=== PATIENT | male | born 1990 | race Caucasian/White ===

== ENCOUNTER 2017-03-16 04:57 | Inpatient (IN) | payer BC ==
[2017-03-16] VITALS (8 sets, daily range): BP systolic 79–141; BP diastolic 56–97
[~2017-03-16] VITALS: Ht 188 cm; Wt 93.5 kg
[~2017-03-16 04:57] MED LIST: AMOXICOT500 MG PO; FLEXERIL10 MG PO; IBUPROFEN800 MG PO; MOTRIN 600MG.600 MG PO
[2017-03-16 05:20] LABS: LYMPH # 3.6 K/mm3 (0.7-4.5); LYMPH % 9.2 % (10-50)
[2017-03-16 05:48] LABS: NEUTROPHILS 88 % (42-76)
--- NOTE | 2017-03-16 05:59 | Emergency Room Report ---
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 OVERDOSE. FOUND UNRESPONSIVE IN THE SHOWER BY GIRLFRIEND. 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 N Clinical Suspician of Infection? N Mental Status: 1 - Regular (Normal Baseline) Sepsis Risk:Severe Sepsis Risk Have you (or family members/close friends) recently traveled outside the [place]? N If Yes, where/when: Have you had exposure to infectious disease within the past month? N TB? Other? Specify: Source patient, RN notes reviewed, EMS, old records Exam Limitations no limitations Comment pt with heroin use around 2200 and was in shower with water running and found about 0400 am - he was nonresponsive - ems used narcan to awake pt - he reports chills but no other complaint and has no meds and denied any iv drug use and no medical problems Cardiac Chest Pain Chest pain indicative of cardiac No Timing/Duration this morning Severity moderate ALLERGIES Coded Allergies: No Known Allergies (06/26/16) Home Medications Active Scripts Cyclobenzaprine Hcl (Flexeril) 5 MG PO TID #15 TAB Prov: 02/03/17 Ibuprofen (Ibuprofen 800MG) 800 MG PO QIDP PRN pain #30 TAB Prov: 02/03/17 IBUPROFEN (Motrin 600MG) 600 MG PO Q6HP PRN PAIN #24 TAB Prov: 06/26/16 History Medical History General CAD? No Angina: No [place]: No Hypertension? No Hyperlipidemia? No CHF? No DVT? No PE? No COPD? No Asthma? No Anemia? No GERD? No Gastric ulcers? No GI Bleed? No Hernia? Yes Thyroid Problems? No Hypothyroidism? No CVA? No Seizures? No Diabetes? No Renal Insuffiency? No End Stage Renal Disease? No UTI? No Stones? No BPH? No GB Disease: No Nephritic Syndrome? No Asplenia? No Hepatitis? No Sickle Cell Disease? No Arthritis? No Migraines? No Cataracts? No Glaucoma? No MRSA? No HIV? No TB? No Anxiety? No Depression? No Cancer? No More? No Immunization Hx DT/Tetanus 1-4 Years Ago Surgical Hx Previous Surgery?N Social History Smoking Hx Smoker: Unknown if Ever Smoked Tobacco: No Alcohol Alcohol: No Drugs none Review of Systems All Other Systems Reviewed and Negative Constitutional see HPI, chills, denies fever Eyes denies blurred vision ENT denies: ear discharge, epistaxis, throat pain. Respiratory see HPI, cough, denies shortness of breath, denies wheezing Cardiovascular denies chest pain, denies palpitations, denies syncope Gastrointestinal denies abdominal pain, denies diarrhea, denies vomiting Genitourinary denies: dysuria, frequency, hesitancy, hematuria. Musculoskeletal denies back pain, denies joint pain, denies joint swelling, denies neck pain Skin denies rash Psychiatric/Neurological denies headache, denies seizure Physical Exam Vital Signs Vital Signs Date Time Temp Pulse Resp B/P Pulse O2 O2 Flow FiO2 Ox Delivery Rate 03/16 0631 95.1 92 20 148/71 90 / 0617 94.1 90 20 132/87 95 /07 0605 93.5 100 20 151/56 97 /07 0549 93.1 93 24 80/73 90 09/07 0529 91.1 106 24 115/80 93 09/07 0510 91.3 110 24 154/20 95 09/07 0500 90.1 105 24 79/56 94 - WBC >12,000 or <4,000 or 10% bands? 2 or more SIRS Criteria Met? B/P:148/71 MAP:63 Creatinine >2.0? UA output<0.5ml/kg/hr for 2 hrs? Platelet count >100,000? Lactate >2.0mmol/1? INR >1.2 or PTT > than 60 sec? Evidence of Organ Dysfunction? Provider documented clinical suspician of infection? N Sepsis Criteria Count: 3 Sepsis Risk: Severe Sepsis Risk General Appearance no apparent distress Eye Exam - bilateral eye PERRL, bilateral eye EOMI Ear, Nose, Throat normal ENT inspection, no tongue biting , nose clear Neck supple Respiratory Status No: respiratory distress. Lung Sounds bilateral: rhonchi. 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 No Results/Orders Laboratory Tests 03/16/17508: Lactic Acid 10.5 H, ESR Pending 03/16/17508: Sodium 144, Potassium 4.1, Chloride 101, Carbon Dioxide 22, BUN 17, Creatinine 1.7 H, Estimated Creat Clear 78, Estimated GFR (MDRD) 49, Glucose 339 H, Calcium 8.9, Total Bilirubin 0.4, AST 47 H, ALT 50, Alkaline Phosphatase 142 H , Creatine Kinase 433 H, CK-MB (CK-2) Rel Index 1.0, CK and CKMB Interp 4.4 H, Troponin I 0.17 H, Total Protein 8.9 H, Albumin 4.7, Globulin 4.2 H, Albumin/ Globulin Ratio 1.1, WBC 39.4 *H, RBC 5.77, Hgb 18.0, Hct 57.1 H, MCV 99.0 H, RDW 12.3, Plt Count 393, MPV 7.4, Gran % 85.6 H, Gran # 33.8 H, Total Counted 100, Lymphocytes % 9.2 L, Monocytes % 3.6, Eosinophils % 0.9, Basophils % 0.6, Neutrophils 88 H, Lymphocytes (Manual) 12, Lymphocytes # 3.6, Monocytes # 1.4 H, Eosinophils # 0.4, Basophils # 0.3 H, Platelet Estimate NORMAL, Anisocytosis 1+, PUBS MCHC 31.5 L, MCH 31.2 Current Medication Orders Sig/Farzana Start time Last Medication Dose Route Stop Time Status Admin Ceftriaxone Sodium 1 GM ONCE ONE 03/16 645 AC Sodium Chloride 50 ML IV 03/16 714 Clindamycin Phosphate 900 MG ONCE ONE 03/16 645 AC Sodium Chloride 100 ML IV 03/16 744 Clindamycin Phosphate 0 .STK-MED ONE 09/07 0633 DC IV Sodium Chloride 1,000 ML .Q1H1M 03/16 0600 AC 03/16 IV 03/16 0831 0556 Sodium Chloride 10 ML PRN PRN 03/16 06 AC IV 03/17 0552 Sodium Chloride 1,000 ML .Q1H1M 03/16 0515 DC 03/16 IV 03/16 0615 0500 Sodium Chloride 10 ML PRN PRN 03/16 0515 AC IV 03/17 0509 Orders Procedure Date/time Status Decision to admit 03/16 625 Active ELECTROCARDIOGRAM REQUEST 03/16 06 Active SED RATE 03/16 06 Active C-REACTIVE PROTEIN 03/16 06 Complete LACTIC ACID FOLLOW UP 03/16 0544 Active CHEST-PORTABLE 03/16 0521 Active DIFFERENTIAL-WBC 03/16 0509 Complete IV SALINE LOCK 03/16 0505 Active CULTURE, BLOOD 03/16 0505 Active URINALYSIS/COMPLETE 03/16 0505 Active LACTIC ACID 03/16 0505 Complete DRUG ABUSE SCREEN (TRIAGE) 03/16 0505 Active CBC WITH AUTO DIFF 03/16 0505 Complete CARDIAC ENZYMES 03/16 0505 Complete CHEM 12 PROFILE 03/16 0505 Complete 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 ST/Twave chgs XRAY/CT/US XRAY/CT/US XRAY chest XR interpretation by reviewed by me Xray Results abnormal (rt lower lobe) Departure Departure Time of Disposition 0631 Disposition Still a Patient Clinical Impression Primary Impression: Aspiration pneumonia Qualifiers: Aspiration pneumonia type: unspecified Laterality: right Lung location: unspecified part of lung Qualified Code: J69.0 - Pneumonitis due to inhalation of food and vomit Secondary Impressions: Elevated troponin Heroin abuse Hypothermia Qualifiers: Encounter type: initial encounter Qualified Code: T68.XXXA - Hypothermia, initial encounter Leukocytosis Qualifiers: Leukocytosis type: bandemia Qualified Code: D72.825 - Bandemia Condition STABLE Referrals Anjum Glasgow MD discussed with dr glasgow Discharge Counseling Counseled pt/family regarding diagnosis, test results, drug counseling,> 3min ED Critical Care Critical Care No at 0644
--- NOTE | 2017-03-16 07:23 | RADIOLOGY REPORT PS360 ---
CHEST-PORTABLE HISTORY: R/O ASPIRATION AFTER OVERDOSE ORDERING PHYSICIAN: Ezequiel Crane MD PATIENT AGE: 26 years COMPARISON: None available FINDINGS: The cardiomediastinal silhouette and pulmonary vascularity are within normal limits. There is patchy density in the right lower lobe suspicious for pneumonia. Left lung is clear. No acute bony anomalies. IMPRESSION: Right lower lobe pneumonia
--- NOTE | 2017-03-16 08:26 | PHARMACY CLINIC NOTE ---
Patient Demographics Patient Demographics Admission date: 03/16/17 Date: 03/16/17 Time: 08 Allergies Coded Allergies: No Known Allergies (06/26/16) HEIGHT- FT: 6 IN: 2.00 K.[id number] VTE General Information Labs: Laboratory Tests 03/16 0509 Hematology Hgb (14.1 - 18.0 g/dL) 18.0 Hct (42.0 - 52.0 %) 57.1 H Plt Count (142 - 424 K/mm3) 393 Disclaimer The following section includes nursing documentation that has been pulled in for pharmacy review. Clinical trial participant? No VTE prophylaxis [id number] [id number] VTE prophylaxis ordered? Yes Type of prophylaxis/treatment: RANDELL at 0826
--- NOTE | 2017-03-16 09:43 | HISTORY AND PHYSICAL REPORT ---
See Addendum History and Physical (FCA) Date of admission: 03/16/17 Chief complaint: Heroin overdose History: History of Present Illness: Mr. Vora is a 26yo WM with no significant medical history other than chronic low back pain who presented to [facility] ED by squad overnight after a heroin overdose at his home. He reports crushing and snorting what he believed was a vicodin around 2200 and was in the shower with water running. He was found around 0400 unresponsive. EMS was summoned and used narcan to revive him. Upon arrival to the ED, he was found to be hypothermic with elevated WBC. CXR showed a right lower lobe pneumonia. He was admitted for IVF and antibiotics. He denies IV drug use or known heroin use. Past Medical History: Medical History: CAD? No Angina: No [place]: No Hypertension? No Hyperlipidemia? No CHF? No DVT? No PE? No COPD? No Asthma? No Anemia? No GERD? No Gastric ulcers? No GI Bleed? No Hernia? Yes Thyroid Problems? No Hypothyroidism? No CVA? No Seizures? No Diabetes? No Renal Insuffiency? No UTI? No Stones? No BPH? No GB Disease: No Nephritic Syndrome? No Asplenia? No Hepatitis? No Sickle Cell Disease? No Arthritis? No Migraines? No Cataracts? No Glaucoma? No MRSA? No HIV? No TB? No Anxiety? No Depression? No Cancer? No More? No Surgical history: Previous Surgery? 1. Hernia repair Medications: Discontinued Scripts Cyclobenzaprine Hcl (Flexeril) 5 MG PO TID #15 TAB Prov: 02/03/17 DC: 03/16/17 09 Ibuprofen (Ibuprofen 800MG) 800 MG PO QIDP PRN pain #30 TAB Prov: 02/03/17 DC: 03/16/1726 IBUPROFEN (Motrin 600MG) 600 MG PO Q6HP PRN PAIN #24 TAB Prov: 06/26/16 DC: 03/16/17 09 Reported Medications No Known Home Medications Allergies: Coded Allergies: No Known Allergies (06/26/16) Family History: Family history: Postive for: unknown. Social History: Smoking Hx Tobacco: Yes Smoker: Current Every Day Smoker Type: Cigarettes Packs/day: < 1 Pack Are you exposed to second hand Yes Alcohol: Alcohol: Yes How much do you drink daily ETOH use When was your last drink 12-24 Hours Ago Hx of Drug Use: Drug Use? Yes Drug(s) of Choice: marijuana, opiates Patient's support system is: fair Review of Systems: Patient unresponsive? No Constitutional Positive for: chills. No: fatigue, lethargy, weak. ENT Positive for: sinus problems. No: nasal congestion, sore throat. Cardiovascular No: STEWARD, chest pain, edema, palpitations. Respiratory No: dyspnea on exertion, shortness of air, non-productive, productive cough ( sputum), wheezing. GI Positive for: nausea, vomitting. No: abdominal pain, anorexia, constipation, diarrhea. (male) No: frequency, hematuria, urgency. Skin No: itching, rash. Neurological No: change in LOC, confusion, gait problem, light headed, numbness, vision change. Immune/allergy No: allergy, itching. Eyes No: blurry vision, vision loss. Musculoskeletal Positive for: lumbar pain (chronic). No: extremity pain, joint pain. Psychiatric No: anxious, depression. Physical Exam: Vital signs: 1ST Vital Signs Result Date Time Pulse Ox 94 03/16 0500 B/P 79/56 03/16 0500 Temp 90.1 03/16 0500 Pulse 105 03/16 0500 Resp 24 03/16 0500 O2 Delivery ROOM AIR 03/16 815 Exam: General appearance: alert, awake, no acute distress, appears drowsy at times Eyes: anicteric, PERRLA ENT: mucous membranes moist, nose normal, pharynx normal Neck: non-tender, supple, no LAD Cardiovascular: regular rate & rhythm, no murmur, normal peripheral pulses Respiratory: CTAB A&P ABD: non-distended, no rebound, soft, no tenderness, no guarding, no organomegaly, no palpable mass, bowel sounds present Extremities: full range of motion, moves all, no peripheral edema, warm, no calf tenderness Skin: dry, intact, warm, numerous tattoos 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1 H, MCV 99.0 H, RDW 12.3, Plt Count 393, MPV 7.4, Gran % 85.6 H, Gran # 33.8 H, Total Counted 100, Lymphocytes % 9.2 L, Monocytes % 3.6, Eosinophils % 0.9, Basophils % 0.6, Neutrophils 88 H, Lymphocytes (Manual) 12, Lymphocytes # 3.6, Monocytes # 1.4 H, Eosinophils # 0.4, Basophils # 0.3 H, Platelet Estimate NORMAL, Anisocytosis 1+, PUBS MCHC 31.5 L, MCH 31.2 Microbiology 03/16 509 BLOOD: Anaerobic Blood Culture - RECD 03/16 509 BLOOD: Aerobic Blood Culture - RECD 03/16 509 BLOOD: Anaerobic Blood Culture - RECD 03/16 509 BLOOD: Aerobic Blood Culture - RECD Radiology results: Results: 03/16/17 CXR: 1. RLL pneumonia 03/16/17 Echo: Pending Diagnosis(es): 1. Aspiration pneumonia Status: Acute 2. Leukocytosis Status: Acute 3. Hypothermia Status: Acute 4. Elevated troponin Status: Acute 5. Heroin abuse 6. Marijuana abuse 7. Nicotine dependence 8. Alcohol abuse Plan: Echo pending. Further per Dr. Muñiz. at 0943 at 0957
[2017-03-16 09:55] LABS: LYMPH # 1.2 K/mm3 (0.7-4.5); LYMPH % 4.5 % (10-50)
[2017-03-16 10:01] LABS: HEMOGLOBIN 15.4 g/dL (14.1-18.0)
--- NOTE | 2017-03-16 14:04 | CONSULT NOTE ---
Standard Demographics Patient Demo Date of Consultation: 03/16/17 Referring Provider: Farhan Muñiz MD Reason for Consultation: Overdose, elevated troponins PRIMARY DIAGNOSIS: OVERDOSE Problem list Problem list: 1. Tobacco use 2. Family history of early coronary artery disease in his father in his early 40 's (smoker and diabetic) 3. History of drug use (marijuana) 4. Alcohol use History of present illness: History of present illness: 26-year-old white male admitted after being found unconscious home. Patient reportedly snorted a pain medication given to him by a friend to help relieve back pain. Patient reportedly went into the shower and was found unconscious of around 5 AM this morning with the water running. Patient noted to be hypothermic , hypotensive with an elevated lactic acid level. He was transported to emergency department for evaluation. Subsequently admitted. Chest x-ray shows RIGHT lower lobe pneumonia. Blood work included cardiac enzymes which revealed elevated CK-MB consistent with rhabdomyolysis and mildly elevated troponins of 0.172. Initial electrocardiograms sinus rhythm with QTC of 484. Cardiology consulted for further evaluation. Past Medical History: General: Hypertension No CVA No Seizures No TB No COPD No Asthma No Diabetes No Angina No [place] No Hyperlipidemia No Cancer No MRSA No GB Disease No Past Surgical HX: Previous Surgery?N Allergies Coded Allergies: No Known Allergies (06/26/16) Home medications: Discontinued Scripts Cyclobenzaprine Hcl (Flexeril) 5 MG PO TID #15 TAB Prov: 02/03/17 DC: 03/16/17 0926 Ibuprofen (Ibuprofen 800MG) 800 MG PO QIDP PRN pain #30 TAB Prov: 02/03/17 DC: 03/16/17 0926 IBUPROFEN (Motrin 600MG) 600 MG PO Q6HP PRN PAIN #24 TAB Prov: 06/26/16 DC: 03/16/17 0926 Reported Medications No Known Home Medications Current Medications: Current Medications Ceftriaxone Sodium 1 GM DAILY IV Sodium Chloride 50 ML Nicotine 0 .STK-MED ONE TD (DC) Sodium Chloride 1,000 ML .STK-MED ONE IV (DC) Sodium Chloride 1,000 ML .STK-MED ONE IV (DC) Acetaminophen 650 MG Q4HP PRN PO Clindamycin Phosphate 900 MG Q8H IV Sodium Chloride 100 ML Nicotine 21 MG DAILYP PRN TD Ondansetron HCl 4 MG Q6HP PRN IV Sodium Chloride 1,000 ML .Q8H IV Ceftriaxone Sodium 1 GM ONCE ONE IV (DC) Sodium Chloride 50 ML Clindamycin Phosphate 900 MG ONCE ONE IV (DC) Sodium Chloride 100 ML Sodium Chloride 2,000 ML .STK-MED ONE IV (DC) Ceftriaxone Sodium 0 .STK-MED ONE IV (DC) Sodium Chloride 50 ML .STK-MED ONE IV (DC) Sodium Chloride 100 ML .STK-MED ONE IV (DC) Clindamycin Phosphate 0 .STK-MED ONE IV (DC) Sodium Chloride 1,000 ML .Q1H1M IV (DC) Sodium Chloride 10 ML PRN PRN IV Sodium Chloride 1,000 ML .Q1H1M IV (DC) Sodium Chloride 10 ML PRN PRN IV Immunization HX DT/Tetanus 1-4 Years Pneumonia Never Had TB Test in last year No Family history Family HX Family Hx Insignificant No Social Hx: Smoking HX Tobacco Yes Type Cigarettes Packs/day < 1 PACK Are you/the child exposed to second-hand smoke: Yes Alcohol Alcohol: Yes How much do you drink daily ETOH use When was your last drink 12-24 Hours Ago Hx of Drug Use Drug Use? Yes Drug(s) of Choice: marijuana Review of systems: Constitutional No: no symptoms reported. Respiratory No: no symptoms reported. Cardiovascular see HPI Gastrointestinal/Abdominal No no symptoms reported Genitourinary No: no symptoms reported. Musculoskeletal back pain. Neurological No: no symptoms reported. Exam: Admission Vital Signs: 1ST Vital Signs Result Date Time Pulse Ox 94 03/16 0500 B/P 79/56 03/16 0500 Temp 90.1 03/16 0500 Pulse 105 03/16 0500 Resp 24 03/16 0500 O2 Delivery ROOM AIR 03/16 0815 O2 Flow Rate 2 03/16 930 Last Vital Signs: Vital Signs Result Date Time Temp 98.9 03/16 1012 Pulse 111 03/16 930 O2 Flow Rate 2 03/16 930 B/P 120/70 03/16 930 Resp 20 03/16 930 Pulse Ox 92 03/16 930 O2 Delivery ROOM AIR 03/16 930 Exam General appearance: alert, awake, no acute distress Neck: non-tender, no carotid bruit, no JVD Cardiovascular: regular rate & rhythm, no murmur Respiratory: mild rhonchi RIGHT base. otherwise clear to auscultation. ABD: soft, no tenderness Extremities: moves all, no peripheral edema Skin: multiple tattoos on the chest arms and legs Neuro: alert, intact, oriented Laboratory data: Laboratory Tests 03/16/17 0944: Lactic Acid 1.5 03/16/17 0944: Creatine Kinase 6064 H, CK-MB (CK-2) Rel Index 1.5, CK and CKMB Interp 88.2 *H, Troponin I 0.17 H, WBC 26.5 *H, RBC 4.96, Hgb 15.4, Hct 45.8, MCV 92.4, RDW 12.6, Plt Count 293, MPV 7.2 L, Gran % 90.6 H, Gran # 24.0 H, Lymphocytes % 4.5 L, Monocytes % 4.5, Eosinophils % 0.4, Basophils % 0.1, Lymphocytes # 1.2, Monocytes # 1.2 H, Eosinophils # 0.1, Basophils # 0.0, PUBS MCHC 33.5, MCH 31.0 03/16/17 0509: Lactic Acid 10.5 H, ESR 0 03/16/17 0509: Sodium 144, Potassium 4.1, Chloride 101, Carbon Dioxide 22, BUN 17, Creatinine 1.7 H, Estimated Creat Clear 78, Estimated GFR (MDRD) 49, Glucose 339 H, Calcium 8.9, Total Bilirubin 0.4, AST 47 H, ALT 50, Alkaline Phosphatase 142 H , Creatine Kinase 433 H, CK-MB (CK-2) Rel Index 1.0, CK and CKMB Interp 4.4 H, Troponin I 0.17 H, Total Protein 8.9 H, Albumin 4.7, Globulin 4.2 H, Albumin/ Globulin Ratio 1.1, WBC 39.4 *H, RBC 5.77, Hgb 18.0, Hct 57.1 H, MCV 99.0 H, RDW 12.3, Plt Count 393, MPV 7.4, Gran % 85.6 H, Gran # 33.8 H, Total Counted 100, Lymphocytes % 9.2 L, Monocytes % 3.6, Eosinophils % 0.9, Basophils % 0.6, Neutrophils 88 H, Lymphocytes (Manual) 12, Lymphocytes # 3.6, Monocytes # 1.4 H, Eosinophils # 0.4, Basophils # 0.3 H, Platelet Estimate NORMAL, Anisocytosis 1+, PUBS MCHC 31.5 L, MCH 31.2 Microbiology Date/Time Procedure - Status Source Growth 03/16 509 Anaerobic Blood Culture - RECD BLOOD 03/16 509 Aerobic Blood Culture - RECD BLOOD 03/16 509 Anaerobic Blood Culture - RECD BLOOD 03/16 509 Aerobic Blood Culture - RECD BLOOD Plan: Assessment: 1. Elevated troponins in this patient with drug overdose. 2. Tobacco use 3. Pneumonia 4. Strong family history of coronary artery disease 5. ETOH use. Recommendations: 1. Echo reviewed by Dr. CORRALES. Cardiac function is normal without significant valve disease. 2. No further cardiac workup recommended. 3. OK for discharge from cardiac standpoint. at 1509
--- NOTE | 2017-03-16 16:17 | RADIOLOGY REPORT PS360 ---
PROCEDURE: 2-D M-mode and color Doppler study INDICATIONS FOR THE TEST: Chest painX COPD Heart Murmur Tobacco SmokingX Palpitations Fatigue Syncope Edema Hypertension Diabetes Mellitus Rheumatic Fever SOB STEWARD Obesity Hyperlipidemia Family History HD Additional History OVERDOSE PATIENT INFORMATION HEIGHT: 74 WEIGHT:185 GENDER: Male B/P:104/52 2-D/M-MODE INTERPRETATION: 2-D MEASUREMENTS OBSERVED VALUES IN CMS Right Ventricular Dimension (RVDd) 1.8 Interventricular Septum (Thickness)(IVsd) .9 Left Ventricular Internal Dimensions(LVIDd) 5.7 Left Ventricular Posterior Wall (Thickness)(LVPWd) .7 Aortic Root 3.2 Aortic Cusp Separation 1.9 Left Atrial Dimensions (LAD) 2.5 2D 1. The left atrium is normal size, left ventricle is normal size, there is preserved left ventricular systolic function, visually estimated ejection fraction of 50% with no obvious regional wall motion abnormality. 2. The right atrium and right ventricle are normal size and contractility. 3. The aortic, mitral and tricuspid valve are structurally normal. 4. The pulmonic valve is poorly visualized. 5. No significant pericardial effusion noted. DOPPLER INTERROGATION: Doppler interrogation of the aortic, mitral and tricuspid valvular presence of mild mitral and tricuspid regurgitation, tricuspid regurgitant jet velocity insufficient for calculation of the right ventricular systolic pressure, diastolic parameters are within normal range. CONCLUSION: 1. Normal left ventricular size, preserved left ventricular systolic function, visually estimated ejection fraction 50% with no obvious regional wall motion abnormality, diastolic parameters are within normal range. 2. Mild mitral and tricuspid regurgitation. 3. No significant pericardial effusion noted.
[2017-03-17] VITALS (8 sets, daily range): BP systolic 128–160; BP diastolic 74–100
[2017-03-17 05:27] LABS: URINE BILIRUBIN - DIPSTICK NEGATIVE (NEG); URINE BLOOD NEGATIVE (NEG)
[2017-03-17 06:04] LABS: AMPHETAMINES/METAMPHETAMINES POSITIVE ng/mL (<1000)
[2017-03-17 06:50] LABS: LYMPH % 23.6 % (10-50)
[2017-03-17 07:10] LABS: HEMOGLOBIN 13.5 g/dL (14.1-18.0)
--- NOTE | 2017-03-17 09:18 | ACUTE CARE PROGRESS NOTE (QUA) ---
Progress Notes Subjective Date 03/17/17 Time 0745 Note Pt feeling better this morning. Still with chronic LBP and has noticed "soreness all over". Pt is up ad saurabh without difficulty. He has developed a non-productive cough overnight, denies any CP or SOB. He is eating well, voiding normally, asking when he will be released. Objective Findings Last VS-Temp:98.4 B/P: 150/98 Pulse:77 Resp:18 SaO2:97 ROOM AIR Last weight lbs: 206 oz: 2 K.498 Method: Bed Scales Laboratory Tests 03/17/17 0615: Sodium 139, Potassium 3.6, Chloride 104, Carbon Dioxide 30, BUN 5 L, Creatinine 0.7 L, Estimated Creat Clear 211 H, Estimated GFR (MDRD) 136, Glucose 109 H, Calcium 8.2 L, WBC 12.6 H, RBC 4.34 L, Hgb 13.5 L, Hct 39.9 L, MCV 92.0, RDW 12.5, Plt Count 208, MPV 7.3 L, Gran % 70.7, Gran # 8.9 H, Lymphocytes % 23.6, Monocytes % 4.9, Eosinophils % 0.6, Basophils % 0.2, Lymphocytes # 3.0, Monocytes # 0.6, Eosinophils # 0.1, Basophils # 0.0, PUBS MCHC 33.8, MCH 31.1 03/17/17 0455: Opiates Screen NEGATIVE, Urine Methadone Screen NEGATIVE, Barbiturates NEGATIVE, Phencyclidine Screen NEGATIVE, Amphetamines Screen POSITIVE H, Benzodiazepines Screen NEGATIVE, Cocaine Screen NEGATIVE, Marijuana (THC) Screen POSITIVE H, Urine Color YELLOW, Urine Appearance CLEAR, Urine pH 6.5, Ur Specific [place] <= 1.005, Urine Protein NEGATIVE, Urine Ketones NEGATIVE, Urine Blood NEGATIVE, Urine Nitrate NEGATIVE, Urine Bilirubin NEGATIVE, Urine Urobilinogen 0.2, Ur Leukocyte Esterase NEGATIVE, Urine Glucose NEGATIVE 03/16/17 0944: Lactic Acid 1.5 03/16/17 0944: Creatine Kinase 6064 H, CK-MB (CK-2) Rel Index 1.5, CK and CKMB Interp 88.2 *H, Troponin I 0.17 H, WBC 26.5 *H, RBC 4.96, Hgb 15.4, Hct 45.8, MCV 92.4, RDW 12.6, Plt Count 293, MPV 7.2 L, Gran % 90.6 H, Gran # 24.0 H, Lymphocytes % 4.5 L, Monocytes % 4.5, Eosinophils % 0.4, Basophils % 0.1, Lymphocytes # 1.2, Monocytes # 1.2 H, Eosinophils # 0.1, Basophils # 0.0, PUBS MCHC 33.5, MCH 31.0 Vital Signs Result Date Time Pulse Ox 97 03/17 430 B/P 150/98 03/17 430 O2 Delivery ROOM AIR 03/17 430 Temp 98.4 03/17 430 Pulse 77 03/17 430 Resp 18 03/17 430 O2 Flow Rate 2 03/16 202503/16/17 ECHO: 1. Normal left ventricular size, preserved left ventricular systolic function, visually estimated ejection fraction 50% with no obvious regional wall motion abnormality, diastolic parameters are within normal range. 2. Mild mitral and tricuspid regurgitation. 3. No significant pericardial effusion noted. Exam General appearance: alert, awake, no acute distress Cardiovascular: regular rate & rhythm, normal peripheral pulses Respiratory: good air movement with scattered expiratory wheeze ABD: non-distended, no rebound, soft, no tenderness, no guarding, no organomegaly, no palpable mass, bowel sounds present Extremities: moves all, no peripheral edema, warm, no calf tenderness Neuro: alert, oriented, speech clear, no focal deficit Reviewed: medications, vital signs, lab results, radiology report, consult note, nursing notes Assessment/Plan Problem List 1. Aspiration pneumonia Status: Acute 2. Leukocytosis Status: Acute 3. Hypothermia Status: Acute 4. Elevated troponin Status: Acute 5. Heroin abuse 6. Marijuana abuse 7. Nicotine dependence 8. Alcohol abuse Patient condition Improving Plan: Cardiology note seen and appreciated. WBC improving. Will continue current care. Further per Dr. Muñiz. This inpt stay is expected to cross 2 MNs from start of care Yes at 0918
--- NOTE | 2017-03-17 09:18 | ACUTE CARE PROGRESS NOTE (QUA) ---
See Addendum Progress Notes Subjective Date 03/17/17 Time 0914 Note He has been stable. Coughing a bit but not bad. Cough is nonproductive. Remains afebrile. Objective Findings Laboratory Tests 03/17/17 0615: Sodium 139, Potassium 3.6, Chloride 104, Carbon Dioxide 30, BUN 5 L, Creatinine 0.7 L, Estimated Creat Clear 211 H, Estimated GFR (MDRD) 136, Glucose 109 H, Calcium 8.2 L, WBC 12.6 H, RBC 4.34 L, Hgb 13.5 L, Hct 39.9 L, MCV 92.0, RDW 12.5, Plt Count 208, MPV 7.3 L, Gran % 70.7, Gran # 8.9 H, Lymphocytes % 23.6, Monocytes % 4.9, Eosinophils % 0.6, Basophils % 0.2, Lymphocytes # 3.0, Monocytes # 0.6, Eosinophils # 0.1, Basophils # 0.0, PUBS MCHC 33.8, MCH 31.1 03/17/17 0455: Opiates Screen NEGATIVE, Urine Methadone Screen NEGATIVE, Barbiturates NEGATIVE, Phencyclidine Screen NEGATIVE, Amphetamines Screen POSITIVE H, Benzodiazepines Screen NEGATIVE, Cocaine Screen NEGATIVE, Marijuana (THC) Screen POSITIVE H, Urine Color YELLOW, Urine Appearance CLEAR, Urine pH 6.5, Ur Specific [place] <= 1.005, Urine Protein NEGATIVE, Urine Ketones NEGATIVE, Urine Blood NEGATIVE, Urine Nitrate NEGATIVE, Urine Bilirubin NEGATIVE, Urine Urobilinogen 0.2, Ur Leukocyte Esterase NEGATIVE, Urine Glucose NEGATIVE 03/16/17 0944: Lactic Acid 1.5 03/16/17 0944: Creatine Kinase 6064 H, CK-MB (CK-2) Rel Index 1.5, CK and CKMB Interp 88.2 *H, Troponin I 0.17 H, WBC 26.5 *H, RBC 4.96, Hgb 15.4, Hct 45.8, MCV 92.4, RDW 12.6, Plt Count 293, MPV 7.2 L, Gran % 90.6 H, Gran # 24.0 H, Lymphocytes % 4.5 L, Monocytes % 4.5, Eosinophils % 0.4, Basophils % 0.1, Lymphocytes # 1.2, Monocytes # 1.2 H, Eosinophils # 0.1, Basophils # 0.0, PUBS MCHC 33.5, MCH 31.0 Last VS-Temp:98.4 B/P:150/98 Pulse:77 Resp:18 SaO2:97 ROOM AIR Last weight lbs:206 oz:2 K.498 Method:Bed Scales Exam General appearance: awake Eyes: anicteric, PERRLA ENT: mucous membranes moist Cardiovascular: regular rate & rhythm Respiratory: aerating well, wheezing (LEFT upper lobe) ABD: no tenderness Genitourinary: normal voiding & quantity Extremities: no peripheral edema Skin: dry, intact Neuro: oriented, speech clear Reviewed: medications, vital signs, lab results, radiology report Assessment/Plan Problem List 1. Aspiration pneumonia Status: Acute 2. Leukocytosis Status: Acute 3. Hypothermia Status: Acute 4. Elevated troponin Status: Acute 5. Heroin abuse 6. Marijuana abuse 7. Nicotine dependence 8. Alcohol abuse Patient condition Improving Plan: continue current care (IV antibiotics) This inpt stay is expected to cross 2 MNs from start of care Yes at 0917
[2017-03-18 00:09] VITALS: BP 125/76
[2017-03-18 04:00] VITALS: BP 126/76
[2017-03-18 06:21] LABS: HEMOGLOBIN 14.2 g/dL (14.1-18.0); LYMPH # 2.8 K/mm3 (0.7-4.5); LYMPH % 33.3 % (10-50)
--- NOTE | 2017-03-18 07:16 | RADIOLOGY REPORT PS360 ---
CHEST(2 VIEWS-NOT PORTABLE) HISTORY: Pneumonia follow-up pneumonia, see prior ORDERING PHYSICIAN: Anjum Muñiz MD PATIENT AGE: 26 years COMPARISON: 03/16/2017 FINDINGS: Unremarkable cardiovascular structures. Infiltrate is once again noted in the right infrahilar region probably unchanged given the difference in technique. Patchy infiltrate or atelectasis has also developed in the left lung base with small left effusion. No acute bony anomalies. IMPRESSION: No change right lower lobe infiltrate/pneumonia. New atelectasis or infiltrate with small effusion in the left lung base
[2017-03-18 07:29] VITALS: BP 146/92
[2017-03-18 09:24] VITALS: BP 146/92
--- NOTE | 2017-03-18 09:27 | ACUTE CARE PROGRESS NOTE (QUA) ---
Progress Notes Subjective Date 03/18/17 Time 0924 Note He is doing very well. He is not having shortness of breath or much cough at all. He is ready for discharge. Objective Findings Last VS-Temp:98.4 B/P:146/92 Pulse:77 Resp:20 SaO2:97 ROOM AIR Last weight lbs:206 oz:2 K.498 Method:Bed Scales Exam General appearance: normal appearance Cardiovascular: regular rate & rhythm Respiratory: clear to auscultation (not wheezing) ABD: soft, no tenderness Extremities: no peripheral edema Skin: dry, intact Assessment/Plan Problem List 1. Aspiration pneumonia Status: Acute 2. Leukocytosis Status: Acute 3. Hypothermia Status: Acute 4. Elevated troponin Status: Acute 5. Heroin abuse 6. Marijuana abuse 7. Nicotine dependence 8. Alcohol abuse Plan: initiate discharge plan, Will discharge on Cefdinir 300mg bid. See complete medication list This inpt stay is expected to cross 2 MNs from start of care Yes at 0949
[2017-03-18 12:00] VITALS: BP 151/89
[2017-03-18] MEDS ORDERED: CEFDINIR300 M1 PO (14:59)
[2017-03-18 15:30] VITALS: BP 151/89
--- NOTE | 2017-03-19 22:00 | DISCHARGE SUMMARY STANDARD ---
Discharge Summary (FCA2) Date of admission: 03/16/17 Date of discharge: 03/18/17 Problem List: 1. Aspiration pneumonia 2. Leukocytosis 3. Hypothermia 4. Elevated troponin 5. Heroin abuse 6. Marijuana abuse 7. Nicotine dependence 8. Alcohol abuse History of present illness: Mr Vora is a 26-year-old white male with no significant medical history other than chronic back pain who presented to [facility] ED by squad after heroin OD at his home. He was found unconscious in the shower with the water running after reportedly snorting a pain medication given to him by a friend to help relieve back pain. EMS administered Narcan to revive him He was transported to emergency department for evaluation and was found to be hypothermic, hypotensive with an elevated lactic acid level and was subsequently admitted. Chest x-ray showed a RIGHT lower lobe pneumonia. Blood work included cardiac enzymes which revealed elevated CK-MB consistent with rhabdomyolysis and mildly elevated troponins of 0.172. Initial electrocardiograms revealed sinus rhythm with QTC of 484. Cardiology was consulted for further evaluation. Patient denied IV drug and Heroin usage. Exam on admission: Vital signs: 1ST Vital Signs Result Date Time Pulse Ox 94 03/16 0500 B/P 79/56 03/16 0500 Temp 90.1 03/16 0500 Pulse 105 03/16 0500 Resp 24 03/16 0500 O2 Delivery ROOM AIR 03/16 0815 Exam: General appearance: alert, awake, no acute distress, appears drowsy at times Eyes: anicteric, PERRLA ENT: mucous membranes moist, nose normal, pharynx normal Neck: non-tender, supple, no LAD Cardiovascular: regular rate & rhythm, no murmur, normal peripheral pulses Respiratory: CTAB A&P ABD: non-distended, no rebound, soft, no tenderness, no guarding, no organomegaly, no palpable mass, bowel sounds present Extremities: full range of motion, moves all, no peripheral edema, warm, no calf tenderness Skin: dry, intact, warm, numerous tattoos Neuro: alert, orchid hand II-XII nml as tested, oriented, speech clear Hospital Course: On admission patient was started on IVF and ABX. 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 He was seen by cardiology with the following assessment: 1. Elevated troponins in this patient with drug overdose. 2. Tobacco use 3. Pneumonia 4. Strong family history of coronary artery disease 5. ETOH use. With the following Recommendations: 1. Echo reviewed by Dr. CORRALES. Cardiac function was noted to be normal without significant valve disease. 2. No further cardiac workup recommended. 3. OK for discharge from cardiac standpoint. 03/18/17 patient was stable and improved with no SOB. He was eating without problems. He was discharged. Laboratory data this visit: 03/16/17 0509: Lactic Acid 10.5 H, ESR 0 03/16/17 0509: Sodium 144, Potassium 4.1, Chloride 101, Carbon Dioxide 22, BUN 17, Creatinine 1.7 H, Estimated Creat Clear 78, Estimated GFR (MDRD) 49, Glucose 339 H, Calcium 8.9, Total Bilirubin 0.4, AST 47 H, ALT 50, Alkaline Phosphatase 142 H , Creatine Kinase 433 H, CK-MB (CK-2) Rel Index 1.0, CK and CKMB Interp 4.4 H, Troponin I 0.17 H, Total Protein 8.9 H, Albumin 4.7, Globulin 4.2 H, Albumin/ Globulin Ratio 1.1, WBC 39.4 *H, RBC 5.77, Hgb 18.0, Hct 57.1 H, MCV 99.0 H, RDW 12.3, Plt Count 393, MPV 7.4, Gran % 85.6 H, Gran # 33.8 H, Total Counted 100, Lymphocytes % 9.2 L, Monocytes % 3.6, Eosinophils % 0.9, Basophils % 0.6, Neutrophils 88 H, Lymphocytes (Manual) 12, Lymphocytes # 3.6, Monocytes # 1.4 H, Eosinophils # 0.4, Basophils # 0.3 H, Platelet Estimate NORMAL, Anisocytosis 1+, PUBS MCHC 31.5 L, MCH 31.2 03/16/17 0944: Lactic Acid 1.5 03/16/17 0944: Creatine Kinase 6064 H, CK-MB (CK-2) Rel Index 1.5, CK and CKMB Interp 88.2 *H, Troponin I 0.17 H, WBC 26.5 *H, RBC 4.96, Hgb 15.4, Hct 45.8, MCV 92.4, RDW 12.6, Plt Count 293, MPV 7.2 L, Gran % 90.6 H, Gran # 24.0 H, Lymphocytes % 4.5 L, Monocytes % 4.5, Eosinophils % 0.4, Basophils % 0.1, Lymphocytes # 1.2, Monocytes # 1.2 H, Eosinophils # 0.1, Basophils # 0.0, PUBS MCHC 33.5, MCH 31.0 03/17/17 0615: Sodium 139, Potassium 3.6, Chloride 104, Carbon Dioxide 30, BUN 5 L, Creatinine 0.7 L, Estimated Creat Clear 211 H, Estimated GFR (MDRD) 136, Glucose 109 H, Calcium 8.2 L, WBC 12.6 H, RBC 4.34 L, Hgb 13.5 L, Hct 39.9 L, MCV 92.0, RDW 12.5, Plt Count 208, MPV 7.3 L, Gran % 70.7, Gran # 8.9 H, Lymphocytes % 23.6, Monocytes % 4.9, Eosinophils % 0.6, Basophils % 0.2, Lymphocytes # 3.0, Monocytes # 0.6, Eosinophils # 0.1, Basophils # 0.0, PUBS MCHC 33.8, MCH 31.1 03/17/17 0455: Opiates Screen NEGATIVE, Urine Methadone Screen NEGATIVE, Barbiturates NEGATIVE, Phencyclidine Screen NEGATIVE, Amphetamines Screen POSITIVE H, Benzodiazepines Screen NEGATIVE, Cocaine Screen NEGATIVE, Marijuana (THC) Screen POSITIVE H, Urine Color YELLOW, Urine Appearance CLEAR, Urine pH 6.5, Ur Specific [place] <= 1.005, Urine Protein NEGATIVE, Urine Ketones NEGATIVE, Urine Blood NEGATIVE, Urine Nitrate NEGATIVE, Urine Bilirubin NEGATIVE, Urine Urobilinogen 0.2, Ur Leukocyte Esterase NEGATIVE, Urine Glucose NEGATIVE Imagin03/16/17 CXR: 1. RLL pneumonia 03/16/17 ECHO CONCLUSION: 1. Normal left ventricular size, preserved left ventricular systolic function, visually estimated ejection fraction 50% with no obvious regional wall motion abnormality, diastolic parameters are within normal range. 2. Mild mitral and tricuspid regurgitation. 3. No significant pericardial effusion noted. CXR 03/18/17 IMPRESSION: No change right lower lobe infiltrate/pneumonia. New atelectasis or infiltrate with small effusion in the left lung base Discharge medications: Start taking the following new medications: Cefdinir (Cefdinir) 300 MG CAPSULE 300 MILLIGRAM ORAL TWICE A DAY Qty = 14 No Refills Disposition: Patient was discharged to home in stable and satisfactory condition.Anjum Muñiz MD Follow up: [address] Muñiz Activity: Cont Current activity Diet: Continue same diet Discharge to: HOME Agency needed? N Meds as per reconciliation sheet at 2200
--- OUTSIDE RECORDS SUMMARY | 2017-04-16 04:59 | External Medical Summary Rpt ---
Demographics Preferred Language [place] Marital Status Unknown Yarsanism Affiliation Unknown Race Unknown Ethnic Group Unknown Author Author ILENE Address Unknown Phone Immunization No patient found.
--- OUTSIDE RECORDS SUMMARY | 2017-04-16 04:59 | External Medical Summary Rpt ---
Author Author , ILENE DAVIS Address Unknown Phone [email or web address] Purpose Continuity of Care Document - 03-16-2017 through 2016 Problems Code Diagnosis DOS Provider Status D72.829 ELEVATED WHITE BLOOD CELL COUNT, UNSPECIFIED F11.10 OPIOID ABUSE, UNCOMPLICAT ED J69.0 PNEUMONITIS DUE TO INHALATION OF FOOD AND VOMIT R74.8 ABNORMAL LEVELS OF OTHER SERUM ENZYMES T68.XXXA HYPOTHERMIA , INITIAL ENCOUNTER Results Labs Lab Lab Date Result Refere Interp Status Commen Order Detail nces retati t Range on Drugs identified in Urine by Screen method (03-17-2017 04:55) Ampheta POSITIV <1000 Abnorma complet mine 017 E l ed [Presen 04:55 ce] in Urine by Screen method 11-Hydr POSITIV <50 Abnorma complet oxy 017 E l ed delta-9 04:55 tetrahy drocann abinol [Presen ce] in Unspeci fied specime n Differential panel, method unspecified - (03-16-2017 05:09) Anisocy 1+ complet tosis 017 ed [Presen 05:09 ce] in Blood LYMPH 12 % 10% - Normal complet 017 50% ed 05:09 Platele NORMAL complet ts 017 ed [Presen 05:09 ce] in Blood by Light microsc opy
--- OUTSIDE RECORDS SUMMARY | 2017-04-16 04:59 | External Medical Summary Rpt ---
Demographics Preferred Language [place] Marital Status Unknown Yarsanism Affiliation Unknown Race Unknown Ethnic Group Unknown Author Author ILENE Address Unknown Phone Immunization No patient found.
--- OUTSIDE RECORDS SUMMARY | 2017-04-16 04:59 | External Medical Summary Rpt ---
Author Author , ILENE DAVIS Address Unknown Phone [email or web address] Purpose Continuity of Care Document - 03-16-2017 [...]
--- OUTSIDE RECORDS SUMMARY | 2017-04-16 05:00 | External Medical Summary Rpt ---
Author Author SUSAN Jarrett, [employer] Organization [employer] Address Unknown Phone Unavailable Results Basic metabolic panel in Blood Observa Value Referen Units Interpr Notes Date tion ce etation Range Urea 7 - 18 mg/dL Low No Sep 9 nitrogen informati 2017 5:40 [Mass/vol on in AM ume] in source Serum or data Plasma Calcium 8.5 - mg/dL Low No Sep 9 [Mass/vol 10.1 informati 2017 5:40 ume] in on in AM Serum or source Plasma data Chloride 98 - 107 mmoL/L Normal No Sep 9 [Moles/vo informati 2017 5:40 lume] in on in AM Serum or source Plasma data Carbon 21.0 - mmoL/L Normal No Sep 9 dioxide, 32.0 informati 2017 5:40 total on in AM [Moles/vo source lume] in data Serum or Plasma Creatinin 0.70 - mg/dL Normal No Sep 9 e 1.30 informati 2017 5:40 [Mass/vol on in AM ume] in source Serum or data Plasma Creatinin 50 - 200 ML/MIN Normal No Sep 9 e renal informati 2017 5:40 clearance on in AM source predicted data by Cockcroft -Gault formula Estimated >60 ML/MIN No REFERENCE Sep 9 informati RANGE: 2017 5:40 glomerula on in >60 AM r source ML/MIN/1. filtratio data 73 SQUARE n rate METERSIf (GF this patient is -A merican, then multiply theresult by 1.210. Glucose 74 - 106 mg/dL High No Sep 9 [Mass/vol informati 2017 5:40 ume] in on in AM Serum or source Plasma data Potassium 3.5 - 5.1 mmoL/L Normal No Sep 9 informati 2017 5:40 [Moles/vo on in AM lume] in source Serum or data Plasma Sodium 136 - 145 mmoL/L Normal No Sep 9 [Moles/vo informati 2017 5:40 lume] in on in AM Serum or source Plasma data CBC W Auto Differential panel in Blood Observa Value Referen Units Interpr Notes Date tion ce etation Range Basophils 0 - 0.2 K/MM3 Normal No Sep 9 informati 2016 5:40 [#/volume on in AM ] in source Blood by data Automated count Basophils 0.1 - 2.0 % Normal No Sep 9 /100 informati 2016 5:40 leukocyte on in AM s in source Blood by data Automated count Eosinophi 0.0 - 0.4 K/mm3 Normal No Sep 9 ls informati 2016 5:40 [#/volume on in AM ] in source Blood by data Automated count Eosinophi 0.1 - % Normal No Sep 9 ls/100 12.0 informati 2016 5:40 leukocyte on in AM s in source Blood by data Automated count Granulocy 1.3 - 8.0 K/mm3 Normal No Sep 9 lennox informati 2017 5:40 [#/volume on in AM ] in source Blood by data Automated count Granulocy 37.0 - % Normal No Sep 9 lennox/100 80.0 informati 2016 5:40 leukocyte on in AM s in source Blood by data Automated count Hematocri 42.0 - % Normal No Sep 9 t [Volume 52.0 informati 2017 5:40 on in AM Fraction] source of Blood data Hemoglobi 14.1 - g/dL Normal No Sep 9 n 18.0 informati 2017 5:40 [Mass/vol on in AM ume] in source Blood data Lymphocyt 0.7 - 4.5 K/mm3 Normal No Sep 9 es informati 2017 5:40 [#/volume on in AM ] in source Unspecifi data ed specimen by Automated count Lymphocyt 10 - 50 % Normal No Sep 9 es informati 2017 5:40 [#/volume on in AM ] in source Unspecifi data ed specimen by Automated count Erythrocy 27 - 31.2 pg Normal No Sep 9 te mean informati 2017 5:40 corpuscul on in AM ar source hemoglobi data n [Entitic mass] Erythrocy 31.8 - g/dl Normal No Sep 9 te mean 35.4 informati 2017 5:40 corpuscul on in AM ar source hemoglobi data n concentra tion [Mass/vol ume] by Automated count Erythrocy 82.2 - fl Normal No Sep 9 te mean 97.8 informati 2016 5:40 corpuscul on in AM ar volume source [Entitic data volume] by Automated count Monocytes 0.1 - 1.0 K/mm3 Normal No Sep 9 informati 2016 5:40 [#/volume on in AM ] in source Blood by data Automated count Monocytes 1.7 - 9.3 % Normal No Sep 9 /100 inform2016 5:40 leukocyte on in AM s in source Blood by data Automated count Platelet 7.4 - fl Normal No Sep 9 mean 10.4 informati 2016 5:40 volume on in AM [Entitic source volume] data in Blood by Automated count Platelets 142 - 424 K/mm3 Normal No Sep 9 informati 2016 5:40 [#/volume on in AM ] in source Blood data Erythrocy 4.6 - 6.2 M/mm3 Low No Sep 9 lennox informati 2016 5:40 [#/volume on in AM ] in source Amniotic data fluid Erythrocy 11.5 - % Normal No Sep 9 te 17.5 informati 2016 5:40 distribut on in AM ion width source [Entitic data volume] by Automated count Leukocyte 4.8 - K/MM3 No No Sep 9 s 10.8 informati informati 2016 5:40 [#/volume on in on in AM ] in source source Blood data data Creatine kinase [Enzymatic activity/volume] in Serum or Plasma Observa Value Referen Units Interpr Notes Date tion ce etation Range OK TO DO ON SAMPLE DRAWN @0615 PER NURSE Creatine 39 - 308 U/L High No Sep 8 kinase informati 2016 6:15 [Enzymati on in AM c source activity/ data volume] in Serum or Plasma CBC W Auto Differential panel in Blood Observa Value Referen Units Interpr Notes Date tion ce etation Range Basophils 0 - 0.2 K/MM3 Normal No Sep 8 informati 2016 6:15 [#/volume on in AM ] in source Blood by data Automated count Basophils 0.1 - 2.0 % Normal No Sep 8 /100 informati 2016 6:15 leukocyte on in AM s in source Blood by data Automated count Eosinophi 0.0 - 0.4 K/mm3 Normal No Sep 8 ls informati 2016 6:15 [#/volume on in AM ] in source Blood by data Automated count Eosinophi 0.1 - % Normal No Sep 8 ls/100 12.0 informati 2016 6:15 leukocyte on in AM s in source Blood by data Automated count Granulocy 1.3 - 8.0 K/mm3 High No Sep 8 lennox informati 2017 6:15 [#/volume on in AM ] in source Blood by data Automated count Granulocy 37.0 - % Normal No Sep 8 lennox/100 80.0 informati 2017 6:15 leukocyte on in AM s in source Blood by data Automated count Hematocri 42.0 - % Low No Sep 8 t [Volume 52.0 informati 2016 6:15 on in AM Fraction] source of Blood data Hemoglobi 14.1 - g/dL Low No Sep 8 n 18.0 informati 2017 6:15 [Mass/vol on in AM ume] in source Blood data Lymphocyt 0.7 - 4.5 K/mm3 Normal No Sep 8 es informati 2017 6:15 [#/volume on in AM ] in source Unspecifi data ed specimen by Automated count Lymphocyt 10 - 50 % Normal No Sep 8 es informati 2017 6:15 [#/volume on in AM ] in source Unspecifi data ed specimen by Automated count Erythrocy 27 - 31.2 pg Normal No Sep 8 te mean informati 2017 6:15 corpuscul on in AM ar source hemoglobi data n [Entitic mass] Erythrocy 31.8 - g/dl Normal No Sep 8 te mean 35.4 informati 2016 6:15 corpuscul on in AM ar source hemoglobi data n concentra tion [Mass/vol ume] by Automated count Erythrocy 82.2 - fl Normal No Sep 8 te mean 97.8 informati 2016 6:15 corpuscul on in AM ar volume source [Entitic data volume] by Automated count Monocytes 0.1 - 1.0 K/mm3 Normal No Sep 8 informati 2016 6:15 [#/volume on in AM ] in source Blood by data Automated count Monocytes 1.7 - 9.3 % Normal No Sep 8 /100 informati 2017 6:15 leukocyte on in AM s in source Blood by data Automated count Platelet 7.4 - fl Low No Sep 8 mean 10.4 informati 2016 6:15 volume on in AM [Entitic source volume] data in Blood by Automated count Platelets 142 - 424 K/mm3 No No Sep 8 informati informati 2016 6:15 [#/volume on in on in AM ] in source source Blood data data Erythrocy 4.6 - 6.2 M/mm3 Low No Sep 8 lennox informati 2017 6:15 [#/volume on in AM ] in source Amniotic data fluid Erythrocy 11.5 - % Normal No Sep 8 te 17.5 informati 2017 6:15 distribut on in AM ion width source [Entitic data volume] by Automated count Leukocyte 4.8 - K/MM3 High No Sep 8 s 10.8 informati 2017 6:15 [#/volume on in AM ] in source Blood data Basic metabolic panel in Blood Observa Value Referen Units Interpr Notes Date tion ce etation Range Urea 7 - 18 mg/dL Low No Sep 8 nitrogen informati 2017 6:15 [Mass/vol on in AM ume] in source Serum or data Plasma Calcium 8.5 - mg/dL Low No Sep 8 [Mass/vol 10.1 informati 2017 6:15 ume] in on in AM Serum or source Plasma data Chloride 98 - 107 mmoL/L Normal No Sep 8 [Moles/vo informati 2017 6:15 lume] in on in AM Serum or source Plasma data Carbon 21.0 - mmoL/L Normal No Sep 8 dioxide, 32.0 informati 2017 6:15 total on in AM [Moles/vo source lume] in data Serum or Plasma Creatinin 0.70 - mg/dL Low No Sep 8 e 1.30 informati 2017 6:15 [Mass/vol on in AM ume] in source Serum or data Plasma Creatinin 50 - 200 ML/MIN High No Sep 8 e renal informati 2017 6:15 clearance on in AM source predicted data by Cockcroft -Gault formula Estimated >60 ML/MIN No REFERENCE Sep 8 informati RANGE: 2017 6:15 glomerula on in >60 AM r source ML/MIN/1. filtratio data 73 SQUARE n rate METERSIf (GF this patient is -A merican, then multiply theresult by 1.210. Glucose 74 - 106 mg/dL High No Sep 8 [Mass/vol informati 2017 6:15 ume] in on in AM Serum or source Plasma data Potassium 3.5 - 5.1 mmoL/L Normal No Sep 8 informati 2017 6:15 [Moles/vo on in AM lume] in source Serum or data Plasma Sodium 136 - 145 mmoL/L Normal No Sep 8 [Moles/vo informati 2017 6:15 lume] in on in AM Serum or source Plasma data Drugs identified in Urine by Screen method Observa Value Referen Units Interpr Notes Date tion ce etation Range Positive urine drug screen samples are stored for 7 days. Contact the Lab if confirmation of positives is needed. Ampheta POSITIV <1000 ng/mL Abnorma This is Sep 8 mine E l an 2016 [Presen UNCONFI 4:55 AM ce] in RMED Urine result. by This Screen result method is for medical purpose s and/or treatme nt only. Barbitura <200 ng/mL No No Sep 8 lennox informati informati 2017 4:55 [Mass/vol on in on in AM ume] in source source Urine by data data Screen method Benzodiaz 200 ng/mL ng/mL No No Sep 8 epines informati informati 2017 4:55 [Mass/vol on in on in AM ume] in source source Serum or data data Plasma by Screen method Cocaine <300 ng/g No No Sep 8 [Mass/vol informati informati 2017 4:55 ume] in on in on in AM Unspecifi source source ed data data specimen Methadone <300 ng/mL No No Sep 8 informati informati 2017 4:55 [Mass/vol on in on in AM ume] in source source Unspecifi data data ed specimen Opiates <300 ng/mL No No Sep 8 [Mass/vol informati informati 2017 4:55 ume] in on in on in AM Unspecifi source source ed data data specimen Phencycli <25 ng/mL No No Sep 8 dine informati informati 2017 4:55 [Mass/vol on in on in AM ume] in source source Unspecifi data data ed specimen 11-Hydr POSITIV <50 ng/mL Abnorma This is Sep 8 oxy E l an 2017 delta-9 UNCONFI 4:55 AM RMED tetrahy result. drocann This abinol result [Presen is for ce] in medical Unspeci purpose fied s specime and/or n treatme nt only. Cardiac enzymes Observa Value Referen Units Interpr Notes Date tion ce etation Range Creatine 0 - 4.0 U/L No No Sep 7 kinase.MB informati informati 2017 9:44 /Creatine on in on in AM source source kinase.to data data johnnie [Ratio] in Serum or Plasma Creatine 0.0 - 3.6 ng/mL High Sep 7 kinase.MB alert 2016 9:44 CRITICAL AM [Mass/vol RESULTS ume] in Serum or RESU Plasma LTS CALLED TO: JAYLA 03/16/17 1054 O'Henrik,Poncho itlyn Creatine 39 - 308 U/L High No Sep 7 kinase informati 2017 9:44 [Enzymati on in AM c source activity/ data volume] in Serum or Plasma Troponin 0.00 - ng/mL High 0.04 - Sep 7 I.cardiac 0.06 0.49 IS 2017 9:44 AN AM [Mass/vol INDETERMI ume] in NANT Serum or ZONEAnd Plasma can be consisten t with the following diseases: Trauma Criticall y ill patients Cowan >30% TBSACHF Hypothyro idism Amyloidos isHyperte nsion Myocardit is SepsisHyp otension Rhabdomyo lysis Vital exhaust.P ostop surgery Pulmonary embolism CVARenal failure Acute neurologi lindsay disease Atrial fib. Lactate [Moles/volume] in Serum or Plasma Observa Value Referen Units Interpr Notes Date tion ce etation Range Lactate 0.4 - 2.0 MMOL/L Normal No Sep 7 [Moles/vo informati 2016 9:44 lume] in on in AM Serum or source Plasma data CBC W Auto Differential panel in Blood Observa Value Referen Units Interpr Notes Date tion ce etation Range Basophils 0 - 0.2 K/MM3 Normal No Sep 7 informati 2016 9:44 [#/volume on in AM ] in source Blood by data Automated count Basophils 0.1 - 2.0 % Normal No Sep 7 /100 informati 2017 9:44 leukocyte on in AM s in source Blood by data Automated count Eosinophi 0.0 - 0.4 K/mm3 Normal No Sep 7 ls informati 2016 9:44 [#/volume on in AM ] in source Blood by data Automated count Eosinophi 0.1 - % Normal No Sep 7 ls/100 12.0 informati 2016 9:44 leukocyte on in AM s in source Blood by data Automated count Granulocy 1.3 - 8.0 K/mm3 High No Sep 7 lennox informati 2016 9:44 [#/volume on in AM ] in source Blood by data Automated count Granulocy 37.0 - % High No Sep 7 lennox/100 80.0 informati 2017 9:44 leukocyte on in AM s in source Blood by data Automated count Hematocri 42.0 - % Normal No Sep 7 t [Volume 52.0 informati 2017 9:44 on in AM Fraction] source of Blood data Hemoglobi 14.1 - g/dL No No Sep 7 n 18.0 informati informati 2017 9:44 [Mass/vol on in on in AM ume] in source source Blood data data Lymphocyt 0.7 - 4.5 K/mm3 Normal No Sep 7 es informati 2017 9:44 [#/volume on in AM ] in source Unspecifi data ed specimen by Automated count Lymphocyt 10 - 50 % Low No Sep 7 es informati 2017 9:44 [#/volume on in AM ] in source Unspecifi data ed specimen by Automated count Erythrocy 27 - 31.2 pg Normal No Sep 7 te mean informati 2017 9:44 corpuscul on in AM ar source hemoglobi data n [Entitic mass] Erythrocy 31.8 - g/dl Normal No Sep 7 te mean 35.4 informati 2017 9:44 corpuscul on in AM ar source hemoglobi data n concentra tion [Mass/vol ume] by Automated count Erythrocy 82.2 - fl Normal No Sep 7 te mean 97.8 informati 2017 9:44 corpuscul on in AM ar volume source [Entitic data volume] by Automated count Monocytes 0.1 - 1.0 K/mm3 High No Sep 7 informati 2017 9:44 [#/volume on in AM ] in source Blood by data Automated count Monocytes 1.7 - 9.3 % Normal No Sep 7 /100 informati 2017 9:44 leukocyte on in AM s in source Blood by data Automated count Platelet 7.4 - fl Low No Sep 7 mean 10.4 informati 2017 9:44 volume on in AM [Entitic source volume] data in Blood by Automated count Platelets 142 - 424 K/mm3 No No Sep 7 informati informati 2017 9:44 [#/volume on in on in AM ] in source source Blood data data Erythrocy 4.6 - 6.2 M/mm3 Normal No Sep 7 lennox informati 2016 9:44 [#/volume on in AM ] in source Amniotic data fluid Erythrocy 11.5 - % Normal No Sep 7 te 17.5 informati 2017 9:44 distribut on in AM ion width source [Entitic data volume] by Automated count Leukocyte 4.8 - K/MM3 High No Sep 7 s 10.8 alert informati 2017 9:44 [#/volume on in AM ] in source Blood data Erythrocyte sedimentation rate by Westergren method Observa Value Referen Units Interpr Notes Date tion ce etation Range Erythrocy 0 - 15 mm/hr Normal No Sep 7 te informati 2017 5:09 sedimenta on in AM tion rate source by data Westergre n method CBC W Auto Differential panel in Blood Observa Value Referen Units Interpr Notes Date tion ce etation Range Basophils 0 - 0.2 K/MM3 High No Sep 7 informati 2017 5:09 [#/volume on in AM ] in source Blood by data Automated count Basophils 0.1 - 2.0 % Normal No Sep 7 /100 informati 2017 5:09 leukocyte on in AM s in source Blood by data Automated count Eosinophi 0.0 - 0.4 K/mm3 Normal No Sep 7 ls informati 2017 5:09 [#/volume on in AM ] in source Blood by data Automated count Eosinophi 0.1 - % Normal No Sep 7 ls/100 12.0 informati 2017 5:09 leukocyte on in AM s in source Blood by data Automated count Granulocy 1.3 - 8.0 K/mm3 High No Sep 7 lennox informati 2017 5:09 [#/volume on in AM ] in source Blood by data Automated count Granulocy 37.0 - % High No Sep 7 lennox/100 80.0 informati 2016 5:09 leukocyte on in AM s in source Blood by data Automated count Hematocri 42.0 - % High No Sep 7 t [Volume 52.0 informati 2017 5:09 on in AM Fraction] source of Blood data Hemoglobi 14.1 - g/dL Normal No Sep 7 n 18.0 informati 2016 5:09 [Mass/vol on in AM ume] in source Blood data Lymphocyt 0.7 - 4.5 K/mm3 Normal No Sep 7 es informati 2016 5:09 [#/volume on in AM ] in source Unspecifi data ed specimen by Automated count Lymphocyt 10 - 50 % Low No Sep 7 es informati 2016 5:09 [#/volume on in AM ] in source Unspecifi data ed specimen by Automated count Erythrocy 27 - 31.2 pg Normal No Sep 7 te mean informati 2016 5:09 corpuscul on in AM ar source hemoglobi data n [Entitic mass] Erythrocy 31.8 - g/dl Low No Sep 7 te mean 35.4 informati 2016 5:09 corpuscul on in AM ar source hemoglobi data n concentra tion [Mass/vol ume] by Automated count Erythrocy 82.2 - fl High No Sep 7 te mean 97.8 informati 2016 5:09 corpuscul on in AM ar volume source [Entitic data volume] by Automated count Monocytes 0.1 - 1.0 K/mm3 High No Sep 7 informati 2016 5:09 [#/volume on in AM ] in source Blood by data Automated count Monocytes 1.7 - 9.3 % Normal No Sep 7 /100 informati 2016 5:09 leukocyte on in AM s in source Blood by data Automated count Platelet 7.4 - fl Normal No Sep 7 mean 10.4 informati 2016 5:09 volume on in AM [Entitic source volume] data in Blood by Automated count Platelets 142 - 424 K/mm3 Normal No Sep 7 informati 2017 5:09 [#/volume on in AM ] in source Blood data Erythrocy 4.6 - 6.2 M/mm3 Normal No Sep 7 lennox informati 2016 5:09 [#/volume on in AM ] in source Amniotic data fluid Erythrocy 11.5 - % Normal No Sep 7 te 17.5 informati 2016 5:09 distribut on in AM ion width source [Entitic data volume] by Automated count Leukocyte 4.8 - K/MM3 High No Sep 7 s 10.8 alert informati 2016 5:09 [#/volume on in AM ] in source Blood data Differential panel, method unspecified - Observa Value Referen Units Interpr Notes Date tion ce etation Range Anisocy 1+ No No No No Sep 7 tosis informa informa informa informa 2016 [Presen tion in tion in tion in tion in 5:09 AM ce] in source source source source Blood data data data data LYMPH 12 10 - 50 % Normal No Sep 7 informa 2016 tion in 5:09 AM source data Platele NORMAL No No No No Sep 7 ts informa informa informa informa 2016 [Presen tion in tion in tion in tion in 5:09 AM ce] in source source source source Blood data data data data by Light microsc opy Neutrophi 42 - 76 % High No Sep 7 ls informati 2016 5:09 [#/volume on in AM ] in source Blood by data Automated count Cells No #CELLS No No Sep 7 Counted informati informati informati 2017 5:09 Total [#] on in on in on in AM in Blood source source source data data data Cardiac enzymes Observa Value Referen Units Interpr Notes Date tion ce etation Range Creatine 0 - 4.0 U/L Normal No Sep 7 kinase.MB informati 2017 5:09 /Creatine on in AM source kinase.to data johnnie [Ratio] in Serum or Plasma Creatine 0.0 - 3.6 ng/mL High No Sep 7 kinase.MB informati 2017 5:09 on in AM [Mass/vol source ume] in data Serum or Plasma Creatine 39 - 308 U/L High No Sep 7 kinase informati 2017 5:09 [Enzymati on in AM c source activity/ data volume] in Serum or Plasma Troponin 0.00 - ng/mL High 0.04 - Sep 7 I.cardiac 0.06 0.49 IS 2017 5:09 AN AM [Mass/vol INDETERMI ume] in NANT Serum or ZONEAnd Plasma can be consisten t with the following diseases: Trauma Criticall y ill patients Cowan >30% TBSACHF Hypothyro idism Amyloidos isHyperte nsion Myocardit is SepsisHyp otension Rhabdomyo lysis Vital exhaust.P ostop surgery Pulmonary embolism CVARenal failure Acute neurologi lindsay disease Atrial fib. Comprehensive metabolic 2000 panel in Serum or Plasma Observa Value Referen Units Interpr Notes Date tion ce etation Range Albumin/G 1.1 - 1.8 No Normal No Sep 7 lobulin informati informati 2017 5:09 [Mass on in on in AM ratio] in source source Serum or data data Plasma Albumin 3.4 - 5.0 gm/dL Normal No Sep 7 [Mass/vol informati 2017 5:09 ume] in on in AM Serum or source Plasma data Alkaline 46 - 116 U/L High No Sep 7 phosphata informati 2017 5:09 se on in AM [Enzymati source c data activity/ volume] in Serum or Plasma Bilirubin 0.2 - 1.0 mg/dL Normal No Sep 7 .total informati 2017 5:09 [Mass/vol on in AM ume] in source Serum or data Plasma Urea 7 - 18 mg/dL Normal No Sep 7 nitrogen informati 2017 5:09 [Mass/vol on in AM ume] in source Serum or data Plasma Calcium 8.5 - mg/dL Normal No Sep 7 [Mass/vol 10.1 informati 2017 5:09 ume] in on in AM Serum or source Plasma data Chloride 98 - 107 mmoL/L Normal No Sep 7 [Moles/vo informati 2017 5:09 lume] in on in AM Serum or source Plasma data Carbon 21.0 - mmoL/L Normal No Sep 7 dioxide, 32.0 informati 2017 5:09 total on in AM [Moles/vo source lume] in data Serum or Plasma Creatinin 0.70 - mg/dL High No Sep 7 e 1.30 informati 2017 5:09 [Mass/vol on in AM ume] in source Serum or data Plasma Creatinin 50 - 200 ML/MIN Normal No Sep 7 e renal informati 2017 5:09 clearance on in AM source predicted data by Cockcroft -Gault formula Estimated >60 ML/MIN No REFERENCE Sep 7 informati RANGE: 2017 5:09 glomerula on in >60 AM r source ML/MIN/1. filtratio data 73 SQUARE n rate METERSIf (GF this patient is -A merican, then multiply theresult by 1.210. Globulin 1.3 - 3.2 gm/dL High No Sep 7 [Mass/vol informati 2017 5:09 ume] in on in AM Serum source data Glucose 74 - 106 mg/dL High No Sep 7 [Mass/vol informati 2017 5:09 ume] in on in AM Serum or source Plasma data Potassium 3.5 - 5.1 mmoL/L Normal No Sep 7 informati 2017 5:09 [Moles/vo on in AM lume] in source Serum or data Plasma Sodium 136 - 145 mmoL/L Normal No Sep 7 [Moles/vo informati 2017 5:09 lume] in on in AM Serum or source Plasma data Aspartate 15 - 37 U/L High No Sep 7 informati 2017 5:09 aminotran on in AM sferase source [Enzymati data c activity/ volume] in Serum or Plasma Alanine 12 - 78 U/L Normal No Sep 7 aminotran informati 2016 5:09 sferase on in AM [Enzymati source c data activity/ volume] in Serum or Plasma Protein 6.4 - 8.2 gm/dL High No Mar 7 [Mass/vol informati 2016 5:09 ume] in on in AM Serum or source Plasma data Lactate [Moles/volume] in Blood Observa Value Referen Units Interpr Notes Date tion ce etation Range Lactate 0.4 - 2.0 mmol/L High Mar 7 [Moles/vo 2016 5:09 lume] in CRITICAL AM Blood RESULTS RESU LTS CALLED TO: KENIA Girard 03/16/17 0544 [place] elevated Lactic Acid is suggestiv e of sepsis and shouldbe repeated within 6 hours of initial testing.
--- OUTSIDE RECORDS SUMMARY | 2017-04-16 05:01 | External Medical Summary Rpt ---
Author Author , ILENE DAVIS Address Unknown Phone [email or web address] Purpose Continuity of Care Document - 03-16-2017 [...]
--- OUTSIDE RECORDS SUMMARY | 2017-04-16 05:01 | External Medical Summary Rpt ---
[...] following diseases: Trauma Criticall y ill patients [place] >30% TBSACHF Hypothyro idism Amyloidos isHyperte nsion [...]
--- OUTSIDE RECORDS SUMMARY | 2017-04-16 05:01 | External Medical Summary Rpt ---
Demographics Preferred Language Dominican Marital Status Unknown Temple Affiliation Unknown Race Unknown Ethnic Group Unknown Author Author ILENE Address Unknown Phone Immunization No patient found.
--- OUTSIDE RECORDS SUMMARY | 2017-04-16 05:01 | External Medical Summary Rpt ---
Demographics Preferred Language Northern Irish Marital Status Unknown Catholic Affiliation Unknown Race Unknown Ethnic Group Unknown Author Author ILENE Address Unknown Phone Immunization No patient found.
--- OUTSIDE RECORDS SUMMARY | 2017-04-16 05:01 | External Medical Summary Rpt ---
Author Author , ILENE DAVIS Address Unknown Phone [email or web address] Purpose Continuity of Care Document - 03-16-2017 [...]
== END 2017-03-18 16:15 | disposition home or self-care (01) | DRG 177 ==
LOC: ER 04:57 → 2ND 06:34 → ER 06:34 → 2ND 06:39
PROVIDERS: Emergency Medicine; Family Medicine
DX: J69.0 Pneumonitis due to inhalation of food and vomit (principal); R40.20 Unspecified coma; F11.20 Opioid dependence, uncomplicated; F17.210 Nicotine dependence, cigarettes, uncomplicated; T40.1X1A Poisoning by heroin, accidental (unintentional), initial encounter; F12.20 Cannabis dependence, uncomplicated; F10.20 Alcohol dependence, uncomplicated; T68.XXXA Hypothermia, initial encounter